=== PATIENT | male | born 1985 | race Two or more races ===

== ENCOUNTER 2021-12-07 18:31 | Emergency (ER) | payer MEDICAID, OTHER ==
[~2021-12-07] VITALS: Ht 175.3 cm; Wt 79.4 kg
[2021-12-07 18:42] VITALS: BP 121/78
== END 2021-12-08 00:21 | disposition left against medical advice (07) ==
LOC: ER 18:31
DX: R07.81 Pleurodynia (principal); R05.9 Cough, unspecified; Z53.21 Procedure and treatment not carried out due to patient leaving prior to being seen by health care provider
CPT/HCPCS: 71101